=== PATIENT | female | born 1925 | race Caucasian/White ===

== ENCOUNTER → 2016-10-18 | Outpatient (CLI) | payer MEDICARE, OTHER ==
[~2016-10-18] MED LIST: ACETAMINOPHEN PO; ASPIRIN PO; ASPIRIN81 M1 PO; ASPIRIN81 M2 PO; ATENOLOL PO; CALCIUM 500 + D1 TAB PO; DIOVAN PO; FIBERCON625 MG PO; FISH OIL 1,0001 CAP PO; GLUCOSAMINE CHON PO; LASIX PO; METOPROLOL TAR25 MG PO; MOTION SICKNESS25 M4 PO; MULTI-VITAMIN1 EAC1 PO; MULTIVITAMINS W1 TAB PO; NITROGLYGERIN0.4 MG SL; NORVASC PO; NORVASC2.5 MG PO; OCUVITE ADULT PO; OCUVITE ADULT1 EACH PO; PROTONIX PO; VITAMIN D-32000 UNIT PO; ZINC SULFATE PO; [UNRECOGNIZED DRUG - OTHER] PO; [UNRECOGNIZED DRUG - REMARK]
--- NOTE | ~2016-10-18 | NM8 ---
[facility] A Service of [facility] RADIOLOGY TEXT RESULTS PATIENT: LEOPOLDO PALMA LOCATION: [facility] : [birth year] UNIT #: [id number] AGE: [address]: CATHY URBANO MD SEX: F ORDER DR: [id number] [facility] [address] [place], [place] [address] [id number] O MR#: [id number] Acc #: [id number] NAME: LEOPOLDO PALMA : 1925 SEX: F STUDY DATE/TIME: 10/18/2016 12:58 UNIT: [facility] ROOM: STUDY DESCRIPTION: ND Bone or Joint Whole Body Attending Physician: Cathy Urbano M.D. Referring Physician: Cathy Urbano M.D. Ordering Physician: Cathy Urbano M.D. Primary Care Physician: Cathy Urbano M.D. MEDICAL IMAGING REPORT This report is preliminary unless electronic signature is present EXAM Whole body bone scan HISTORY Elevated calcium found August 31 with pain in back, knees, elbows and feet. Patient fell two weeks ago. History of osteoporosis. COMPARISON Studies are plain films of the femur, hip and elbow on the left. FINDINGS The patient was given 23.4 mCi of Tc 99m MDP. 2 or 3 hours anterior and posterior images were obtained with lateral views of the ribs. There appears to be kyphosis in the spine. There is increased uptake in the thoracic spine in the lower region in a band like distribution suggesting possible compression fracture. There is increased uptake in the lumbar spine on the left at about T12-L1 and perhaps L3-4 probably representing facet degenerative change and on the right at L5-S1 also suggesting facet degenerative change. Increased uptake in both knees is consistent with osteoarthritis is worse on the left than on the right and uptake in the mid foot and first tarsometatarsal regions bilaterally is also consistent with degenerative change. IMPRESSION 1. Findings suggest right greater than left knee degenerative change and right greater than left mid foot degenerative change with left greater than right first metatarsophalangeal joint degenerative change. 2. Band like uptake in the mid to lower thoracic spine suggest a possible compression fracture. 3. Uptake in the lower thoracic and lumbar spine suggests marked facet degenerative changes at those levels. [facility]. [facility] A Service of [facility] RADIOLOGY TEXT RESULTS PATIENT: LEOPOLDO PALMA LOCATION: [facility] : [birth year] UNIT #: [id number] AGE: [address]: CATHY URBANO MD SEX: F ORDER DR: 4. Kyphosis. Dictated by... Omer Arguelles M.D. THIS IS AN ELECTRONICALLY VERIFIED REPORT Omer Arguelles M.D. at 10/20/2016 2:00 PM ROSA/sherrie TD: 10/19/2016 22:27 JOB #: [id number] MEDICAL IMAGING REPORT Page 1 of 1 COPY
== END | disposition home or self-care (01) ==
LOC: CNUC 09:30
DX: R79.9 Abnormal finding of blood chemistry, unspecified (principal); M40.209 Unspecified kyphosis, site unspecified
CPT/HCPCS: 78306; A9503